=== PATIENT | female | born 1980 | race Two or more races ===

== ENCOUNTER → 2024-02-12 | Outpatient (CLI) | payer MEDICAID, SELFPAY ==
--- NOTE | 2024-02-12 14:45 | XR_ITS ---
Examination: Pelvic ultrasound, transabdominal, complete Technique: Transabdominal ultrasound of the pelvis performed using grayscale imaging Date and time of exam: February 12, 2024 1516 hours INDICATIONS: Pelvic pain beginning 4 months ago FINDINGS: Uterus 9.2 x 6.4 x 6.8 cm Uterine fundal mass 5.8 x 3.8 x 4.5 cm Ovaries obscured by bowel gas IMPRESSION: Uterine fundal mass 5.8 x 3.8 x 4.5 cm, most consistent with fibroid degeneration, recommend 3-6 month follow-up transvaginal pelvic sonography
--- NOTE | 2024-02-12 14:45 | XR_ITS ---
Examination: Transvaginal ultrasound of the pelvis, complete Technique: Transvaginal sonographic images pelvis performed using royal scale imaging Exam date and time: February 12, 2024 1522 hours INDICATIONS: Pelvic pain beginning 4 months ago FINDINGS: Uterus 8.8 x 5.6 x 6.8 cm Uterine fundal mass 5.1 x 4.5 x 5.4 cm Right ovary 3.4 x 2.1 x 2.5 cm arterial flow 18 mm 11 mm cysts Left ovary 2.4 x 1.3 x 1.5 cm arterial flow No fluid in the cul-de-sac IMPRESSION: Uterine fundal mass 5.1 x 4.5 x 5.4 cm, recommend 3 month follow-up transvaginal pelvic sonography.
== END | disposition home or self-care (01) ==
PROVIDERS: PCP Nurse Practitioner Family; Referring Provider Nurse Practitioner Family; Visit Provider Nurse Practitioner Family
DX: N85.8 Other specified noninflammatory disorders of uterus (principal)
CPT/HCPCS: 76830; 76856

== ENCOUNTER → 2024-02-20 | Outpatient (BNVA) | payer MEDICAID, SELFPAY | END | disposition home or self-care (01) | PROVIDERS: PCP Nurse Practitioner Family; Referring Provider Nurse Practitioner Family; Visit Provider Nurse Practitioner Family | DX: D25.9 Leiomyoma of uterus, unspecified (principal); F32.1 Major depressive disorder, single episode, moderate; Z71.2 Person consulting for explanation of examination or test findings; F41.9 Anxiety disorder, unspecified; N92.0 Excessive and frequent menstruation with regular cycle; N85.8 Other specified noninflammatory disorders of uterus | CPT/HCPCS: 99212; G0463 ==

== ENCOUNTER → 2024-05-04 | Outpatient (BNVA) | payer MEDICAID, SELFPAY | END | disposition home or self-care (01) | PROVIDERS: PCP Nurse Practitioner Family; Referring Provider Nurse Practitioner Family; Visit Provider Nurse Practitioner Family | DX: G43.009 Migraine without aura, not intractable, without status migrainosus (principal); J30.2 Other seasonal allergic rhinitis; F32.1 Major depressive disorder, single episode, moderate; F41.9 Anxiety disorder, unspecified | CPT/HCPCS: 96372; 99213; J3301 ==

== ENCOUNTER 2024-06-01 09:26 | Outpatient (AMB) | payer MEDICAID, SELFPAY ==
--- NOTE | 2024-06-01 09:57 | GYNCLNT_ITS ---
Vital Signs 06/01/24 09:58 Height 1.61 m Height Method Stated Weight 95.368 kg Weight Measurement Method Standing Scale BMI 36.8 BP 140/84 H Blood Pressure Source Automatic Cuff Blood Pressure Location Left Upper Arm Position Sitting Respiration 16 Pulse 76 Pulse Source Monitor Temp 96.3 F L Temp Source Oral Pulse Oximetry (%) 98 Oxygen Delivery Method Room Air Allergies/Home Meds Allergies & Medications Allergies No Known Allergies Allergy (Verified 06/01/24 09:59) Medication Reconciliation ibuprofen 800 mg tablet (IBU) 800 mg PO Q8H #90 tabs 04/16/24 [Rx Confirmed 06/01/24] fexofenadine 180 mg tablet (Basia Allergy) 180 mg PO QDAY 90 days #90 tabs 05/04/24 [Rx Confirmed 06/01/24] fluoxetine 40 mg capsule 40 mg PO QAM #90 caps 05/04/24 [Rx Confirmed 06/01/24] fluticasone propionate 50 mcg/actuation nasal spray,suspension (Flonase Allergy Relief) 2 spray intranasal QDAY PRN allergy symptoms 30 days #16 grams 05/04/24 [Rx Confirmed 06/01/24] rimegepant 75 mg disintegrating tablet (Nurtec ODT) 75 mg PO Q OTHER DAY PRN migraine headache 90 days #60 tabs 05/04/24 [Rx Confirmed 06/01/24] hydroxyzine HCl 25 mg tablet 25 mg PO QHS 90 days #90 tabs 05/11/24 [Rx Confirmed 06/01/24] Intake Visit Data Collection New Patient or Established: Established Patient (seen at [facility] within 3 years) Reason for Visit:: Fibroids Seen by Clinical Staff ONLY (RN/MA): No Disintegrator Operator Required: Yes Disintegrator Operator's name/title: ALINA JENKINS / OPERATIONS PROGRAM MANAGER S Do You Feel Safe at Home: Yes Authorities Contacted: N/A PCP or OBGYN visit in last 3 months: Yes Hx Now: No Pain Scale Used: Patton-Sanches/Numerical Pain scale:: 0 Smoking Status Smoking Status: Never smoker Correctional Guard history Correctional Guard History Menstrual regularity: regular Flow: normal Monthly: Yes Currently sexually active: Yes Questionnaires PHQ-9 PHQ-2 Over the last 2 weeks, how often have you been bothered by any of the following problems? 1. Little interest or pleasure in doing things: several days 2. Feeling down, depressed, or hopeless: not at all Total score: 1 PHQ-9 3. Trouble falling or staying asleep, or sleeping too much: Not at all 4. Feeling tired or having little energy: Not at all 5. Poor appetite or overeating: Not at all 6. Feeling bad about yourself - or that you are a failure or have let yourself or your family down: Not at all 7. Trouble concentrating on things, such as reading the newspaper or watching television: Not at all 8. Moving or speaking so slowly that other people could have noticed? - Or the opposite - being so fidgety or restless that you have been moving around a lot more than usual: more than half the days 9. Thoughts that you would be better off or of hurting yourself in some way: Not at all Total score: 3 If you checked off any problems, how difficult have these problems made it for you to do your work, take care of things at home, or get along with other people?: not difficult at all Source: Developed by Drs. Sean Oswald, Lin Farrar, Bruno Bragg and colleagues, with an educational lou from [employer]. Depression screen completed yes Social History Living Situation History Lives With: Family Housing: House Tobacco History Smoking Status: Never smoker Second Hand Smoke Exposure: No Alcohol History Alcohol Intake: Current Alcohol Intake Frequency: holidays/special occasions only Substance Use History Substance Use: NONE Domestic Abuse History Do You Feel Safe at Home: Yes Past Medical History Past Medical History Have you ever been diagnosed with any of the following: History of Present Illness HPI Narrative Patient reports mid-abdominal pain radiating to the left side and upper left back for approximately 3 months. She experiences heavy menstrual periods with pain and large clots, sometimes accompanied by hot flushes. She noted her last period was 10 days late. Patient expresses concern due to her father's from non-Hodgkin's lymphoma, which initially presented with generalized nonspecific abdominal pain. Her maternal aunt was recently diagnosed with breast cancer, and the patient expressed interest in genetic testing due to this family history. She is a 43-year-old female referred by primary care provider for review of fibroids seen on pelvic ultrasound. She has a history of cholelithiasis, migraines, and is currently taking medication for depression. A pap smear performed on 10-29-23 was negative for intraepithelial lesions or malignancy. Ultrasound on 02-12-24 revealed a uterus measuring 8.8 x 5.6 x 6.8 cm with a uterine frontal mass measuring 5.1 x 4.5 x 5.4 cm. Right ovary measured 3.4 cm and left ovary 2.4 cm, both with arterial flow. No fluid was observed in the cul-de-sac. CT scan on the same day corroborated these findings. A previous outpatient ultrasound on 12-24-23 noted an enhancing 4 cm fundal mass and a 14 mm adnexal cyst. The patient was informed about a medication plan, timed progesterone for 21 dayst with her period. Diagnostic Test Results and Labs: - Pap smear (10-29-23): Negative for intraepithelial lesions or malignancy - Ultrasound (02-12-24): Uterus measuring 8.8 x 5.6 x 6.8 cm Uterine frontal mass measuring 5.1 x 4.5 x 5.4 cm Right ovary 3.4 cm with arterial flow Left ovary 2.4 cm with arterial flow No fluid in the cul-de-sac - CT scan (02-12-24): Consistent with ultrasound findings - Outpatient ultrasound (12-24-23): Enhancing 4 cm fundal mass 14 mm adnexal cyst Review of Systems Review of Systems Systems Reviewed: All systems reviewed, normal except as documented Exam General Limitations: no limitations General Appearance: alert, in no apparent distress, comfortable, cooperative, healthy appearing, well developed and well groomed Head Head exam: atraumatic, normocephalic and normal inspection Neck Neck exam: Present normal inspection, full ROM and trachea midline Chest Chest inspection: Present normal inspection and symmetric chest wall rise Abdominal Abdominal exam: Present soft and normal bowel sounds Extremities Extremities exam: Present normal inspection and full ROM Back Back exam: Present normal inspection and full ROM Psych Psychiatric exam: Present normal affect and normal mood Skin Skin exam: Present warm, dry, intact and normal color Assessment & Plan Diagnosis / Problem List (1) Cholelithiasis: Status: Chronic Qualifiers: Cholelithiasis location: gallbladder Cholecystitis presence: without cholecystitis Biliary obstruction: without biliary obstruction Qualified Code(s): K80.20 - Calculus of gallbladder without cholecystitis without obstruction (2) Ovarian cyst: Status: Acute Qualifiers: Laterality: right Qualified Code(s): N83.201 - Unspecified ovarian cyst, right side (3) Uterine mass: Status: Chronic Plan: Uterine Fibroids: - Administer Lupron (leuprolide depot) monthly for up to a year. - Repeat ultrasound in 3 months to monitor fibroid growth. - Prescribe medication to be taken 3 times a day for 5 days starting after the first three days of next menstrual period. - Schedule follow-up appointment in June after next menstrual period for Lupron injection. Family History of Cancer: - Order genetic testing for breast cancer gene at next visit. (4) Family history of malignant neoplasm in father: Status: Acute Additional Plan Follow Up: 3 Weeks Office Procedures OB Clinic LOC & Office Proc's Nursing/Assessment Patient Status: Established Patient OB Clinic Nursing Assessment: BP Monitoring, Medication Reconciliation, Update PMH in EMR and Vital Signs OB Clinic Coordination of Care: Complex Care and Chronic Disease 1-5, Consent,records obtained, informed consent, Education Simp Pt/Fam and Staff clarify orders Established Patient Charge Established Patient Point Assignment: 100 Established Patient Point Charge: EP Level 3 (80-115)
[2024-06-01 09:58] VITALS: BP 140/84; PULSE 76; RESP 16; TEMP 35.7; O2SAT 98; BMI 36.8
== END 2024-06-01 10:31 | disposition home or self-care (01) ==
LOC: HODSOBC 09:26
PROVIDERS: PCP Nurse Practitioner Family; Referring Provider Nurse Practitioner Family; Supervising Provider Obstetrics & Gynecology; Visit Provider Obstetrics & Gynecology
DX: R10.9 Unspecified abdominal pain (principal); N92.0 Excessive and frequent menstruation with regular cycle; N83.201 Unspecified ovarian cyst, right side; N85.8 Other specified noninflammatory disorders of uterus; Z80.9 Family history of malignant neoplasm, unspecified
CPT/HCPCS: 99213; G0463

== ENCOUNTER → 2024-06-22 | Outpatient (BNVA) | payer MEDICAID, SELFPAY | END | disposition home or self-care (01) | PROVIDERS: PCP Nurse Practitioner Family; Referring Provider Nurse Practitioner Family; Visit Provider Nurse Practitioner Family | DX: Z12.39 Encounter for other screening for malignant neoplasm of breast (principal); G43.909 Migraine, unspecified, not intractable, without status migrainosus | CPT/HCPCS: 81025; 96372; 99215; J1200; J1885; Q0162 ==

== ENCOUNTER → 2024-07-15 | Outpatient (CLI) | payer MEDICAID, SELFPAY ==
--- NOTE | 2024-07-15 14:30 | XR_ITS ---
Examination: Screening digital mammography, bilateral Computer aided detection 3-D breast Tomosynthesis, bilateral Date and time of exam: July 15, 2024 1439 hours Comparison December 10, 2022 Indication: Screening Technique: Nonmagnified MLO, CC views of the breasts to been obtained, reconstructed from 3-D Tomosynthesis images. R2 computer aided detection program utilized for evaluation of suspicious masses and/or abnormal calcifications. 3-D Tomosynthesis images obtained. Findings: The breasts are heterogeneously dense, which may obscure small masses Retroareolar circumscribed nodules right breast likely benign cysts described on the breast sonography October 03, 2017 Also 7 mm circumscribed nodule 12:00 position left breast, likely cyst described on left breast sonogram October 03, 2017 Impression: BI-RADS Category 0: Incomplete: Need additional imaging evaluation Recommend follow-up bilateral renal sonography to confirm bilateral benign breast cysts
== END | disposition home or self-care (01) ==
PROVIDERS: PCP Nurse Practitioner Family; Referring Provider Nurse Practitioner Family; Visit Provider Nurse Practitioner Family
DX: Z12.31 Encounter for screening mammogram for malignant neoplasm of breast (principal); R92.8 Other abnormal and inconclusive findings on diagnostic imaging of breast
CPT/HCPCS: 77063; 77067

== ENCOUNTER 2024-07-28 14:00 | Outpatient (AMB) | payer MEDICAID, SELFPAY ==
[2024-07-28 14:29] VITALS: BP 121/82; PULSE 87; RESP 18; TEMP 36.2; O2SAT 98; BMI 36.8
--- NOTE | 2024-07-28 14:29 | OBCLNT_ITS ---
Vital Signs 07/28/24 14:29 Height 1.61 m Height Method Stated Weight 95.424 kg Weight Measurement Method Standing Scale BMI 36.8 BP 121/82 Blood Pressure Source Automatic Cuff Blood Pressure Location Left Upper Arm Position Sitting Respiration 18 Pulse 87 Pulse Source Monitor Temp 97.2 F Temp Source Oral Pulse Oximetry (%) 98 Oxygen Delivery Method Room Air Allergies/Home Meds Allergies & Medications Allergies No Known Allergies Allergy (Verified 08/06/24 11:32) Medication Reconciliation galcanezumab-gnlm 120 mg/mL subcutaneous pen injector (Emgality Pen) 120 mg subcut QMONTH #1 mL 06/22/24 [Rx Confirmed 08/06/24] ibuprofen 800 mg tablet (IBU) 800 mg PO Q8H #90 tabs 08/04/24 [Rx Confirmed 08/06/24] gabapentin 100 mg capsule 100 mg PO QHS 30 days #30 caps 08/06/24 [Rx] Intake Visit Data Collection New Patient or Established: Established Patient (seen at [facility] within 3 years) Reason for Visit:: LUPRON INJECTION AUTHORIZATION APPROVED FOR 6 INJECTIONS ONLY Seen by Clinical Staff ONLY (RN/MA): No Laborer Cutting Tool Required: Yes Laborer Cutting Tool's name/title: ALINA JENKINS MA Do You Feel Safe at Home: Yes Authorities Contacted: N/A PCP or OBGYN visit in last 3 months: Yes Date of Last PCP or OBGYN visit: 06/22/24 Hx Now: No Are you currently on any form of Control: No Pain Present Currently: No Pain Scale Used: Patton-Sanches/Numerical Pain scale:: 0 Smoking Status Smoking Status: Never smoker Questionnaires Covid-19 Vaccine Questionnaire Has patient been vacinated for Covid-19 Have you been vacinated for Covid-19: Yes PHQ-9 PHQ-2 Over the last 2 weeks, how often have you been bothered by any of the following problems? 1. Little interest or pleasure in doing things: not at all 2. Feeling down, depressed, or hopeless: not at all Total score: 0 PHQ-9 3. Trouble falling or staying asleep, or sleeping too much: Not at all 4. Feeling tired or having little energy: Not at all 5. Poor appetite or overeating: Not at all 6. Feeling bad about yourself - or that you are a failure or have let yourself or your family down: Not at all 7. Trouble concentrating on things, such as reading the newspaper or watching television: Not at all 8. Moving or speaking so slowly that other people could have noticed? - Or the opposite - being so fidgety or restless that you have been moving around a lot more than usual: not at all 9. Thoughts that you would be better off or of hurting yourself in some way: Not at all Total score: 0 Source: Developed by Drs. Sean Oswald, Lin Farrar, Bruno Bragg and colleagues, with an educational lou from [employer]. Depression screen completed yes Social History Living Situation History Lives With: Family Housing: House Tobacco History Smoking Status: Never smoker Second Hand Smoke Exposure: No Alcohol History Alcohol Intake: Current Alcohol Intake Frequency: holidays/special occasions only Substance Use History Substance Use: NONE Domestic Abuse History Do You Feel Safe at Home: Yes History of Present Illness HPI Narrative Patient presents for follow-up of uterine fibroids and to receive her scheduled Lupron injection. She had previously discussed treatment options and elected to receive dapolipran (Lupron) injections once a month, with a plan to repeat an ultrasound in 3 months. She is currently starting a 6-month course of Lupron injections for the management of her uterine fibroids. This treatment aims to temporarily pause her hormonal cycle, which is expected to cause the fibroids to shrink due to the reduction in hormonal stimulation. The patient is attending today for her mala eduled injection, which is part of the ongoing treatment plan. She has been approved for 6 months of treatment, typically administered in blocks of 6 injections with a 2-month break in between. The patient's understanding of the treatment and its effects was reinforced during this visit. It was explained that the Lupron injections would temporarily stop her body's production of hormones related to her menstrual cycle, leading to a reduction in fibroid size. The reversible nature of the treatment was also discussed, noting that the effects would subside once the injections are discontinued, with hormones returning to normal levels but the fibroids remaining smaller in size. She is a 43-year-old female with a history of uterine fibroids. Exam General General Appearance: alert, in no apparent distress and healthy appearing Head Head exam: atraumatic Neck Neck exam: Present normal inspection and trachea midline Chest Chest inspection: Present normal inspection and symmetric chest wall rise External exam: Present normal external exam; Absent tenderness Neuro Neurological exam: Present oriented X3 Psych Psychiatric exam: Present normal affect and normal mood Office Procedures OB Clinic LOC & Office Proc's Nursing/Assessment Patient Status: Established Patient OB Clinic Nursing Assessment: Medication Reconciliation, Update PMH in EMR and Vital Signs OB Clinic Coordination of Care: Education Complex Pt/Fam, Consent,records obtained, informed consent, Lab and Imaging orders and Staff clarify orders Established Patient Charge Established Patient Point Assignment: 80 Injection/Vaccine Admin Admin 1st Vaccine: Yes Office Meds Lupron Depot 3.75 mg intramuscular syringe kit Performing Provider: Doyle Thrasher MD Performing Location: [facility]IG[facility] ACCOUNT DIRECT[facility] Clinic Administered by: Alina Jenkins MA on 08/06/24 16:27 Dose Route Admin Location Dispensed Lot Number Expiration Date [facility][NOTE 3] Life Insurance Underwriter 3.375 mg IM L 3.75 mg [id number] 04/30/26 3856-7343-28 [employer] Assessment & Plan Diagnosis / Problem List (1) Fibroid, uterine: Status: Acute Qualifiers: Uterine leiomyoma location: unspecified location Qualified Code(s): D25.9 - Leiomyoma of uterus, unspecified (2) Pelvic pain: Status: Acute (3) Menorrhagia: Status: Acute Plan Uterine Fibroids Plan: - Administer Lupron injection today. - Continue monthly Lupron injections for a total of 6 months. - Schedule monthly follow-up appointments for Lupron administration. - Repeat ultrasound in 3 months to assess fibroid response. - After 5th injection, plan for a 2-month break before considering further treatment. - Educated patient on the temporary nature of the treatment and expected effects.
== END 2024-07-28 14:50 | disposition home or self-care (01) ==
LOC: HODSOBC 14:00
PROVIDERS: PCP Obstetrics & Gynecology; Referring Provider Obstetrics & Gynecology; Supervising Provider Obstetrics & Gynecology; Visit Provider Obstetrics & Gynecology
DX: D25.9 Leiomyoma of uterus, unspecified (principal); N92.0 Excessive and frequent menstruation with regular cycle
CPT/HCPCS: 90471; 96372; 99213; J1950; G0463

== ENCOUNTER → 2024-08-06 | Outpatient (BNVA) | payer MEDICAID, SELFPAY | END | disposition home or self-care (01) | PROVIDERS: PCP Nurse Practitioner Family; Referring Provider Nurse Practitioner Family; Visit Provider Nurse Practitioner Family | DX: J30.2 Other seasonal allergic rhinitis (principal); J32.9 Chronic sinusitis, unspecified; R53.83 Other fatigue; I83.813 Varicose veins of bilateral lower extremities with pain; G25.81 Restless legs syndrome; R92.8 Other abnormal and inconclusive findings on diagnostic imaging of breast; G47.33 Obstructive sleep apnea (adult) (pediatric); Z80.3 Family history of malignant neoplasm of breast; Z12.31 Encounter for screening mammogram for malignant neoplasm of breast | CPT/HCPCS: 99215 ==

== ENCOUNTER → 2024-08-24 | Outpatient (BNVA) | payer MEDICAID, SELFPAY | END | disposition home or self-care (01) | PROVIDERS: PCP Nurse Practitioner Family; Referring Provider Nurse Practitioner Family; Visit Provider Nurse Practitioner Family | DX: Z00.01 Encounter for general adult medical examination with abnormal findings (principal); Z11.3 Encounter for screening for infections with a predominantly sexual mode of transmission; F41.9 Anxiety disorder, unspecified; G43.909 Migraine, unspecified, not intractable, without status migrainosus; F32.1 Major depressive disorder, single episode, moderate; Z13.1 Encounter for screening for diabetes mellitus; Z13.220 Encounter for screening for lipoid disorders; E66.9 Obesity, unspecified; Z68.30 Body mass index [BMI] 30.0-30.9, adult; D50.0 Iron deficiency anemia secondary to blood loss (chronic); G25.81 Restless legs syndrome; I83.813 Varicose veins of bilateral lower extremities with pain; Z71.85 Encounter for immunization safety counseling | CPT/HCPCS: 85018; 96372; 99173; 99215; 99396; J1885; G0439 ==

== ENCOUNTER 2024-08-25 15:25 | Outpatient (AMB) | payer MEDICAID, SELFPAY ==
[2024-08-25 15:39] VITALS: BP 108/67; PULSE 73; RESP 16; TEMP 36.7; O2SAT 98; BMI 36.1
--- NOTE | 2024-08-25 15:39 | GYNCLNT_ITS ---
Vital Signs 08/25/24 15:39 Height 1.61 m Height Method Stated Weight 93.667 kg Weight Measurement Method Standing Scale BMI 36.1 BP 108/67 Blood Pressure Source Automatic Cuff Blood Pressure Location Right Upper Arm Position Sitting Respiration 16 Pulse 73 Pulse Source Monitor Temp 98.1 F Temp Source Oral Pulse Oximetry (%) 98 Oxygen Delivery Method Room Air Allergies/Home Meds Allergies & Medications Allergies No Known Allergies Allergy (Verified 08/25/24 15:41) Medication Reconciliation ibuprofen 800 mg tablet (IBU) 800 mg PO Q8H #90 tabs 08/04/24 [Rx Confirmed 08/25/24] ferrous fumarate 325 mg (106 mg iron) tablet 325 mg PO QDAY 30 days #30 tabs 08/24/24 [Rx Confirmed 08/25/24] fluoxetine 40 mg capsule 40 mg PO QDAY 08/24/24 [History Confirmed 08/25/24] folic acid 400 mcg tablet 0.4 mg PO QDAY #90 tabs 08/24/24 [Rx Confirmed 08/25/24] estradiol 1 mg tablet 1 mg PO QDAY 30 days #30 tabs 08/25/24 [Rx] fremanezumab-vfrm 225 mg/1.5 mL subcutaneous auto-injector (Ajovy) 675 mg (4.5 mL) subcut QMONTH #4.5 mL 08/25/24 [Rx Confirmed 08/25/24] gabapentin 300 mg capsule 300 mg PO QHS 30 days #30 caps 08/25/24 [Rx Confirmed 08/25/24] rimegepant 75 mg disintegrating tablet (Nurtec ODT) 75 mg PO Q OTHER DAY PRN migraine headache 90 days #60 tabs 08/25/24 [Rx Confirmed 08/25/24] Intake Visit Data Collection New Patient or Established: Established Patient (seen at [facility] within 3 years) Reason for Visit:: LUPERON INJECTION Seen by Clinical Staff ONLY (RN/MA): No Piercing Specialist Required: Yes Piercing Specialist's name/title: ALINA JENKINS Do You Feel Safe at Home: Yes Authorities Contacted: N/A PCP or OBGYN visit in last 3 months: Yes Hx Now: No Are you currently on any form of Control: No Last menstrual period: 08/13/24 Pain Present Currently: No Pain Scale Used: Patton-Sanches/Numerical Pain scale:: 0 Smoking Status Smoking Status: Never smoker Questionnaires Covid-19 Vaccine Questionnaire Has patient been vacinated for Covid-19 Have you been vacinated for Covid-19: Yes PHQ-9 PHQ-2 Over the last 2 weeks, how often have you been bothered by any of the following problems? 1. Little interest or pleasure in doing things: several days PHQ-9 8. Moving or speaking so slowly that other people could have noticed? - Or the opposite - being so fidgety or restless that you have been moving around a lot more than usual: not at all Source: Developed by Drs. Sean Oswald, Lin Farrar, Bruno Bragg and colleagues, with an educational lou from [employer]. Social History Living Situation History Lives With: Family Housing: House Tobacco History Smoking Status: Never smoker Second Hand Smoke Exposure: No Alcohol History Alcohol Intake: Current Alcohol Intake Frequency: holidays/special occasions only Substance Use History Substance Use: NONE Domestic Abuse History Do You Feel Safe at Home: Yes History of Present Illness HPI Narrative Patient reports that her menstrual bleeding has become even heavier following the first injection of her treatment regimen. She denies experiencing hot flushes or anxiety related to the treatment. Patient's condition originated with multiple leiomyomas of the uterus, confirmed by an ultrasound in February. The imaging revealed a fundal leiomyoma measuring 5.1 by 4.5 by 5.4 centimeters, along with multiple smaller fibroids. Her primary concerns have been pelvic pain and bleeding. Patient reports some intermediate symptoms, though these are not specified in detail. She appears to be considering her treatment options, as there is a discussion about potentially continuing with injections or considering surgery if the current treatment plan is not effective. She has agreed to receive another injection along with the addition of a low-dose hormone pill to address the side effects, including the increased bleeding. Patient has a history of multiple uterine leiomyomas (fibroids). She has received at least one injection for leiomyomas, with side effects including heavy bleeding, possible hot flushes and anxiety. Patient reports positive for hot flushes, heavy bleeding, and anxiety. Exam General General Appearance: alert, in no apparent distress and healthy appearing Head Head exam: atraumatic Neck Neck exam: Present normal inspection and trachea midline Chest Chest inspection: Present normal inspection and symmetric chest wall rise External exam: Present normal external exam; Absent tenderness Neuro Neurological exam: Present oriented X3 Psych Psychiatric exam: Present normal affect and normal mood Office Procedures OB Clinic LOC & Office Proc's Nursing/Assessment Patient Status: Established Patient OB Clinic Nursing Assessment: Medication Reconciliation, Update PMH in EMR and Vital Signs OB Clinic Coordination of Care: Complex Care and Chronic Disease 1-5, Consent,records obtained, informed consent, Education Simp Pt/Fam and Staff clarify orders Established Patient Charge Established Patient Point Assignment: 85 Established Patient Point Charge: EP Level 3 (80-115) Injection/Vaccine Admin Admin 1st Vaccine: Yes Office Meds Lupron Depot 3.75 mg intramuscular syringe kit Performing Provider: Doyle Thrasher MD Performing Location: [facility] Clinic Administered by: Alina Jenkins MA on 08/25/24 16:08 Dose Route Admin Location Dispensed Lot Number Expiration Date [facility] Executive Marketing Assistant 3.375 mg IM LEFT GLUTE 3.75 mg [id number] 10/09/26 1136-9745-82 [email or web address] Assessment & Plan Diagnosis / Problem List (1) Vasomotor symptoms due to menopause: Status: Acute (2) Pelvic pain: Status: Acute (3) Menorrhagia: Status: Acute (4) Fibroid, uterine: Status: Acute Qualifiers: Uterine leiomyoma location: unspecified location Qualified Code(s): D25.9 - Leiomyoma of uterus, unspecified Plan Multiple Uterine Leiomyomas: - Confirmed by ultrasound in February. - Fundal leiomyoma measuring 5.1 x 4.5 x 5.4 cm. - Multiple smaller fibroids present. - Primary symptoms: pelvic pain and heavy bleeding. - Initial injection (likely GnRH agonist) resulted in heavier bleeding. - Possible intermediate symptoms: hot flushes and anxiety (not explicitly confirmed). Plan: - Administer second injection (likely GnRH agonist) - Initiate add-back therapy with low-dose hormone pill for side effects * Patient to fish bait picker prescription from [facility] today - Follow-up appointment in one month - Patient instructed to return sooner if problems persist or worsen - Consider surgical intervention if treatment is not tolerated
== END 2024-08-25 15:52 | disposition home or self-care (01) ==
LOC: HODSOBC 15:25
PROVIDERS: PCP Obstetrics & Gynecology; Referring Provider Obstetrics & Gynecology; Supervising Provider Obstetrics & Gynecology; Visit Provider Obstetrics & Gynecology
DX: D25.9 Leiomyoma of uterus, unspecified (principal); N92.0 Excessive and frequent menstruation with regular cycle; N95.1 Menopausal and female climacteric states; R23.2 Flushing
CPT/HCPCS: 90471; 96372; 99213; J1950; G0463

== ENCOUNTER → 2024-08-25 | Outpatient (BNVA) | payer MEDICAID, SELFPAY | END | disposition home or self-care (01) | PROVIDERS: PCP Nurse Practitioner Family; Referring Provider Nurse Practitioner Family; Visit Provider Nurse Practitioner Family | DX: N39.0 Urinary tract infection, site not specified (principal) | CPT/HCPCS: 96372; 99214; J1200; J1885 ==

== ENCOUNTER → 2024-08-31 | Outpatient (BNVA) | payer MEDICAID, SELFPAY | END | disposition home or self-care (01) | PROVIDERS: PCP Nurse Practitioner Family; Referring Provider Nurse Practitioner Family; Visit Provider Nurse Practitioner Family | DX: N39.0 Urinary tract infection, site not specified (principal); G43.909 Migraine, unspecified, not intractable, without status migrainosus | CPT/HCPCS: 81001; 81025; 96372; 99215; A4216; J0696 ==

== ENCOUNTER → 2024-09-04 | Outpatient (BNVA) | payer MEDICAID, SELFPAY | END | disposition home or self-care (01) | PROVIDERS: PCP Nurse Practitioner Family; Referring Provider Nurse Practitioner Family; Visit Provider Nurse Practitioner Family | DX: Z71.2 Person consulting for explanation of examination or test findings (principal); D50.0 Iron deficiency anemia secondary to blood loss (chronic); R19.00 Intra-abdominal and pelvic swelling, mass and lump, unspecified site; N92.0 Excessive and frequent menstruation with regular cycle; E78.5 Hyperlipidemia, unspecified; R73.03 Prediabetes; E55.9 Vitamin D deficiency, unspecified; R10.2 Pelvic and perineal pain | CPT/HCPCS: 99212; G0463 ==

== ENCOUNTER → 2024-09-14 | Outpatient (BNVA) | payer MEDICAID, SELFPAY | END | disposition home or self-care (01) | PROVIDERS: PCP Nurse Practitioner Family; Referring Provider Nurse Practitioner Family; Visit Provider Nurse Practitioner Primary Care | DX: U07.1 COVID-19 (principal) | CPT/HCPCS: 87804; 87811; 99214 ==

== ENCOUNTER 2024-09-15 13:43 | Emergency (ER) | payer MEDICAID, SELFPAY ==
[2024-09-15 13:46] VITALS: BMI 34.1
[2024-09-15 13:53] VITALS: BP 136/92; PULSE 83; RESP 18; TEMP 36.8; O2SAT 98
--- NOTE | 2024-09-15 14:00 | XR_ITS ---
Examination: CT brain head without contrast. 2-D sagittal coronal reconstructions Date and time of exam:September 15, 2024 1427 hours INDICATIONS: Generalized head pain paresthesias and numbness in Disease today CTDI: vol (mGy):44.9 DLP: (mGycm):863 Technique: Multiple CT axial sections of the brain have been obtained, 5 mm slice thickness. Contrast has not been administered. 2-D sagittal, coronal reconstructions have been obtained Low dose protocols were performed. One or more of the following dose reduction techniques were used; automated exposure control, adjustment of the mA and/or KV according to patient size, use of iterative reconstruction technique. Findings: No significant ventricular enlargement. Intra-axial or extra-axial hemorrhage density is not seen. No mass effect or midline shift Basal cisterns are not remarkable. Fourth ventricle is midline. Cranial vault intact. Impression: Negative for acute hemorrhage, mass effect or midline shift As clinically warranted, brain MRI follow-up would best assess for demyelinating disease
--- NOTE | 2024-09-15 14:01 | EKG_ITS ---
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
--- NOTE | 2024-09-15 14:01 | XR_ITS ---
Examination: PA lateral chest 2 views TECHNIQUE: Upright PA lateral chest 2 views Date and time: September 15, 2024 1439 hours Comparison November 06, 2022 INDICATIONS: Chest pain beginning 4 days ago. FINDINGS: Normal heart size. Lungs are clear. The osseous structures are intact. IMPRESSION: No active disease.
--- NOTE | 2024-09-15 14:01 | PD.EDRME ---
Rapid Medical Screening Exam RME Arrival date/time: 09/15/24 13:43 43-year-old female presents the emergency department today for complaints of numbness and tingling to her extremities patient reports she started taking medication for COVID yesterday and reports symptom started after that Chief Complaint: General Adult/Misc Complain Vital signs: Vital Signs Temperature 98.3 F 09/15/24 13:53 Pulse Rate 83 09/15/24 13:53 Respiratory Rate 18 09/15/24 13:53 Blood Pressure 136/92 H 09/15/24 13:53 Pulse Oximetry (%) 98 09/15/24 13:53 Oxygen Delivery Method Room Air 09/15/24 13:53
[2024-09-15 15:00] LABS: Basophils # (Auto) 0.0 Thou/mm3 (0.0-0.2); Basophils % (Auto) 0 % (0-2.5); Eosinophils # (Auto) 0.0 Thou/mm3 (0.0-0.5); Eosinophils % (Auto) 0 % (0-10); Hematocrit 32.2 % (36.0-46.0); Hemoglobin 10.0 g/dL (12.0-16.0); Immature Granulocytes Auto 0.02 Thou/mm3 (0.00-0.00); Lymphocytes # (Auto) 1.1 Thou/mm3 (1.0-4.8); Lymphocytes % (Auto) 20 % (10-50); Mean Corpuscular HGB Conc 31.1 g/dl (31.0-37.0); Mean Corpuscular Hemoglobin 19.5 pg (25.0-35.0); Mean Corpuscular Volume 63 fL (80-100); Monocytes # (Auto) 0.2 Thou/mm3 (0.0-0.8); Monocytes % (Auto) 4 % (0-12); Neutrophils # (Auto) 3.9 Thou/mm3 (1.8-7.7); Neutrophils % (Auto) 75 % (37-80); Nucleated Red Blood Cell # 0.00 Thou/mm3 (0.00-0.00); Nucleated Red Blood Cell % 0 /100 WBC (0); Platelet Count 329 Thou/mm3 (140-440); RDW Standard Deviation 40.6 fL (36.4-46.3); Red Blood Count 5.14 Miln/mm3 (4.00-5.20); White Blood Count 5.2 Thou/mm3 (3.6-11.0)
[2024-09-15 15:15] LABS: Alanine Aminotransferase 64 U/L (10-49); Albumin, Serum 5.0 gm/dL (3.5-5.0); Albumin/Globulin Ratio 1.6 (1.2-2.2); Alkaline Phosphatase 147 U/L (46-116); Anion Gap 11 (7-16); Aspartate Amino Transferase 29 U/L (0-34); BUN/Creatinine Ratio 10 Ratio (12-20); Bilirubin,Total 0.3 mg/dL (0.3-1.2); Blood Urea Nitrogen 9 mg/dL (9-23); Calcium 9.8 mg/dL (8.3-10.6); Calcium (Corrected) 9.8 mg/dL (8.5-10.1); Carbon Dioxide 26.3 mMol/L (20.0-31.0); Chloride 107 mMol/L (98-107); Creatinine (Component) 0.9 mg/dL (0.6-1.3); Estimated Creatinine Clearance 92.7 mL/min (>60); Globulin 3.1 gm/dL (2.3-3.5); Glucose 120 mg/dL (74-106); Osmolality,Calculated 286 (275-295); Potassium 4.4 mMol/L (3.4-5.1); Sodium 144 mMol/L (136-145); Total Protein 8.1 gm/dL (5.7-8.2); Troponin I < 0.020 ng/mL (0.0-0.045); eGFR > 60 See Note
--- NOTE | 2024-09-15 15:39 | EDNOTE_ITS ---
ED General RME/HPI General Chief complaint: General Adult/Misc Complain Stated complaint: HANDS/FEET ARE NUMB & NAUSEA X 3 HRS Time Seen by Provider: 09/15/24 15:38 Arrival date/time: 09/15/24 13:43 43-year-old female presents the emergency department today for complaints of numbness and tingling to her extremities patient reports she started taking medication for COVID yesterday and reports symptom started after that Limitations: no limitations RME / HPI RME / HPI narrative: 09/15/24 13:43 43-year-old female presents the emergency department today for complaints of numbness and tingling to her extremities patient reports she started taking medication for COVID yesterday and reports symptom started after that Related Data Home Medications ?Medication ?Instructions ?Recorded ?Confirmed fluoxetine 40 mg capsule 40 mg PO QDAY 08/24/2409/14 Previous Rx's ?Medication ?Instructions ?Recorded ibuprofen 800 mg tablet (IBU) 800 mg PO Q8H #90 tabs 0 08/04/24 folic acid 400 mcg tablet 0.4 mg PO QDAY #90 tabs 08/09 09/02 estradiol 1 mg tablet 1 mg PO QDAY 30 days #30 tab s 08/25/24 gabapentin 300 mg capsule 300 mg PO QHS 30 days #30 ca ps 08/25/24 rimegepant 75 mg disintegrating 75 mg PO Q OTHER DAY P RN migraine 08/25/24 tablet (Nurtec ODT) headache 90 days #60 tabs fremanezumab-vfrm 225 mg/1.5 mL 225 mg (1.5 mL) subcut QMONTH #4.5 08/31/24 subcutaneous auto-injector (Ajovy) mL ergocalciferol (vitamin D2) 1,250 50,000 unit PO QWEEK 12 weeks #12 09/04/24 mcg (50,000 unit) capsule caps ferrous sulfate 325 mg (65 mg 325 mg PO BID 30 days #6 0 tabs 09/04/24 iron) tablet nirmatrelvir 300 mg (150 mg See Rx Instructions PO .CO MPLEX 09/14/24 x2)-ritonavir 100 mg tablet,dose #30 tabs pack (Paxlovid) ondansetron HCl 4 mg tablet 4 mg PO Q8H 5 days #15 tab s 09/15/24 Allergies Allergy/AdvReac Type Severity Reaction Status Date / Time No Known Allergies Allergy Verified 09/15/24 13:49 Review of Systems Review of Systems Systems Reviewed: All systems reviewed, normal except as documented Constitutional Constitutional: Reports system reviewed and no additional complaints, except as documented, Denies fever(s) and Denies headache(s) Eyes Eyes: Reports system reviewed and no additional complaints, except as documented and Denies blurry vision ENT Ears, Nose, Mouth, and Throat: Reports system reviewed and no additional complaints, except as documented, Denies headache(s), Denies nasal congestion and Denies nasal discharge Cardiovascular Cardiovascular: Reports system reviewed and no additional complaints, except as documented, Denies chest pain and Denies dyspnea Respiratory Respiratory: Reports system reviewed and no additional complaints, except as documented, Denies chest congestion, Denies cough and Denies dyspnea Gastrointestinal Gastrointestinal: Reports system reviewed and no additional complaints, except as documented and Denies abdominal pain Integumentary/Breasts Skin/Breast: Reports system reviewed and no additional complaints, except as documented and Denies rash Neurologic Neurologic: Reports system reviewed and no additional complaints, except as documented, Reports as per HPI, Denies headache(s) and Reports other (Paresthesias fingertips and toes) Past Medical History Social History SMOKING STATUS: Never smoker SECOND HAND EXPOSURE: No ED Exam General Limitations: Present no limitations General appearance: Present alert and in no apparent distress Head Head exam: Present atraumatic, normocephalic and normal inspection Eye Eye exam: Present normal appearance, PERRL and EOMI; Absent conjunctival injection ENT ENT exam: Present normal exam, normal oropharynx and mucous membranes moist Neck Neck exam: Present normal inspection, full ROM and trachea midline Chest Chest inspection: Present normal inspection and symmetric chest wall rise Respiratory Respiratory exam: Present normal lung sounds bilaterally; Absent respiratory distress Cardiovascular Cardiovascular exam: Present regular rate, normal rhythm and normal heart sounds Abdominal Exam Abdominal exam: Present soft and normal bowel sounds; Absent distention, tenderness, guarding, rebound or rigidity Extremities Exam Extremities exam: Present normal inspection and full ROM Back Exam Back exam: Present normal inspection and full ROM Neurological Exam Neurological exam: Present alert, oriented X3, CN II-XII intact, normal gait and reflexes normal; Absent motor sensory deficit Psychiatric Psychiatric exam: Present normal affect and normal mood Skin Skin exam: Present warm, dry, intact and normal color; Absent rash Course Quality Measures none Orders Category Date Time Status EKG (ED ONLY) *Do not use* NOW Care 09/15/24 14:[address] head/brain wo con Stat Exams 09/15/24 14:00 Completed EKG (ED Only) Stat Exams 09/15/24 14:01 Draft XR chest 2V Stat Exams 09/15/24 14:01 Completed CBC Stat Lab 09/15/24 14:31 Completed Comprehensive Metabolic Panel Stat Lab 09/15/24 14:31 Completed Path Review Blood Smear Stat Lab 09/15/24 14:31 Completed Troponin I Stat Lab 09/15/24 14:31 Completed Vital Signs Vital signs: Vital Signs Temperature 98.3 F 09/15/24 13:53 Pulse Rate 83 09/15/24 13:53 Respiratory Rate 18 09/15/24 13:53 Blood Pressure 136/92 H 09/15/24 13:53 Pulse Oximetry (%) 98 09/15/24 13:53 Oxygen Delivery Method Room Air 09/15/24 13:53 O2 saturation 98% room air within normal limits PROCEDURES: EKG Interpretation #1: Date of EK09/15/24 Time of EK:03 Rate: 78 Interpretation: Interpreted by me EKG Impression: Normal sinus rhythm, No acute ST-T changes, No ectopy, No ischemic changes, Normal QRS, Normal intervals and Normal axis Discharge Plan Plan Patient Disposition: HOME (Self Care) Discharge Disposition comment: Stable Prescriptions/Referrals Prescriptions/Med Rec: No Action estradiol 1 mg tablet 1 mg PO QDAY 30 Days Qty: 30 2RF Ajovy Autoinjector 225 mg/1.5 mL auto-injector 225 mg subcut QMONTH Qty: 4.5 0RF fluoxetine 40 mg capsule 40 mg PO QDAY folic acid 400 mcg tablet 0.4 mg PO QDAY Qty: 90 0RF Nurtec ODT 75 mg tablet,disintegrating 75 mg PO Q OTHER DAY PRN (Reason: migraine headache) 90 Days Qty: 60 3RF gabapentin 300 mg capsule 300 mg PO QHS 30 Days Qty: 30 0RF Rx Instructions: take 2 hours before bedtime ergocalciferol (vitamin D2) 1,250 mcg (50,000 unit) capsule 50,000 unit PO QWEEK 84 Days Qty: 12 0RF ferrous sulfate 325 mg (65 mg iron) tablet 325 mg PO BID 30 Days Qty: 60 0RF Paxlovid 300 mg (150 mg x 2)-100 mg tablets,dose pack See Rx Instructions PO .COMPLEX Qty: 30 0RF Rx Instructions: take TWO 150 mg tablets of nirmatrelvir with ONE 100 mg tablet of ritonavir twice daily for 5 days PO ondansetron HCl 4 mg tablet 4 mg PO Q8H 5 Days Qty: 15 0RF ibuprofen [IBU] 800 mg tablet 800 mg PO Q8H Qty: 90 0RF Referrals: No Primary/Family,Physician [Primary Care Provider] - 09/16/24 Problem List Clinical Impression: Paresthesia, COVID-19 Patient/Caregiver Discharge Instructions Education Materials: COVID-19 Home Care Additional Instructions: Please follow up with your primary care doctor in the next 24-48hrs for any worsening symptoms return here immediately Print Language: Persian Stand Alone Forms: Aggie Award Info., Patient Portal Info Letter PA/QUYNH Supervising Physician PA/TOWER EQUIPMENT REPAIRER Supervising Physician: dr hernández [facility] Narrative [facility] hospital course: 43-year-old female presents the emergency department today for complaints of numbness and tingling to her extremities patient reports she started taking medication for COVID yesterday and reports symptom started after that On exam patient well-appearing patient does not appear ill or toxic no acute distress patient has equal strength bilaterally no abnormal neurological findings Lab work and imaging obtained no acute emergent findings noted Patient discharged home in no distress to follow-up with primary care doctor in the next 24 to 48 hours and for any worsening symptoms to return to the ER immediately Clinical Information Provided by patient Medical Records Reviewed [facility] Meds/Rx Considered, not Ordered None Labs/Rad/Tests considered, not Ordered Describe details: Obtained Chronic Illness/Social Conditions which may negatively complicate care or outcome(s)-explain: None or not applicable EKG EKG Interpretation narrative: Reviewed by me Lab Interpretation Labs: interpreted by me Imaging Imaging interpretation: see narrative above Provider imaging interpretation(s): Ordered Radiology reports / interpretation(s): Reviewed by me Medication Administration(s) none Diagnosis Differential diagnosis: Anxiety, COVID-19, paresthesia Differential dx and/or dx ruled out: COVID-19, paresthesia Most likely dx, and/or detailed dx discussion: COVID-19, paresthesia Dispositon Disposition: Discharge Home
[2024-09-15 18:01] LABS: Path Review Blood Smear Sent to Pathologist
== END 2024-09-15 16:00 | disposition home or self-care (01) ==
PROVIDERS: Nurse Practitioner Primary Care; Emergency Provider Family Medicine
DX: U07.1 COVID-19 (principal); R20.2 Paresthesia of skin; R94.31 Abnormal electrocardiogram [ECG] [EKG]
CPT/HCPCS: 36415; 70450; 71046; 80053; 84484; 85025; 93005; 99283

== ENCOUNTER → 2024-09-15 | Outpatient (BNVA) | payer MEDICAID, SELFPAY | END | disposition home or self-care (01) | PROVIDERS: PCP Nurse Practitioner Family; Referring Provider Nurse Practitioner Family; Visit Provider Nurse Practitioner Primary Care | DX: U07.1 COVID-19 (principal) | CPT/HCPCS: 99212; 99213; Q0162 ==

== ENCOUNTER → 2024-10-07 | Outpatient (CLI) | payer MEDICAID, SELFPAY ==
--- NOTE | 2024-10-07 13:00 | XR_ITS ---
Examination: CT maxillofacial, without intravenous contrast. 2-D sagittal reconstructions. 3-D reconstructions. Date and time of exam:October 07, 2024 1401 hours INDICATIONS: Sinus pressure and pain congestion difficulty breathing to the nose 6 months CTDI: vol (mGy):7.65 DLP: (mGycm):111 Technique: Multiple axial images of maxillofacial region, 3.0 mm slice thickness. 2-D sagittal and coronal reconstructions. 3-D reconstructions. Low dose protocols were performed. One or more of the following dose reduction techniques were used; automated exposure control, adjustment of the mA and/or KV according to patient size, use of iterative reconstruction technique. Findings: Total opacification right frontal air cells Trace mucosal thickening right maxillary antrum up to 3 mm No deviation nasal septum Mild hypertrophy inferior nasal turbinates No fluid levels No retention cysts IMPRESSION: Chronic right frontal sinusitis. Minimal chronic right maxillary sinusitis
== END | disposition home or self-care (01) ==
LOC: CCTX 13:28
PROVIDERS: PCP Nurse Practitioner Family; Referring Provider Nurse Practitioner Family; Visit Provider Nurse Practitioner Family
DX: J32.0 Chronic maxillary sinusitis (principal); J32.1 Chronic frontal sinusitis
CPT/HCPCS: 70486

== ENCOUNTER → 2024-10-30 | Outpatient (BNVA) | payer MEDICAID, SELFPAY | END | disposition home or self-care (01) | PROVIDERS: PCP Nurse Practitioner Family; Referring Provider Nurse Practitioner Family; Visit Provider Nurse Practitioner Family | DX: Z71.2 Person consulting for explanation of examination or test findings (principal); J32.0 Chronic maxillary sinusitis; J32.1 Chronic frontal sinusitis; G43.909 Migraine, unspecified, not intractable, without status migrainosus | CPT/HCPCS: 99213 ==

== ENCOUNTER → 2024-12-24 | Outpatient (BNVA) | payer MEDICAID, SELFPAY | END | disposition home or self-care (01) | PROVIDERS: PCP Nurse Practitioner Family; Referring Provider Nurse Practitioner Family; Visit Provider Nurse Practitioner Family | DX: F32.1 Major depressive disorder, single episode, moderate (principal); F41.9 Anxiety disorder, unspecified; R73.03 Prediabetes; E78.5 Hyperlipidemia, unspecified; E55.9 Vitamin D deficiency, unspecified; Z28.21 Immunization not carried out because of patient refusal | CPT/HCPCS: 99213 ==

== ENCOUNTER → 2025-01-01 | Outpatient (BNVA) | payer MEDICAID, SELFPAY | END | disposition home or self-care (01) | PROVIDERS: PCP Nurse Practitioner Family; Referring Provider Nurse Practitioner Family; Visit Provider Nurse Practitioner Family | DX: Z71.2 Person consulting for explanation of examination or test findings (principal); D50.0 Iron deficiency anemia secondary to blood loss (chronic); E55.9 Vitamin D deficiency, unspecified; E78.5 Hyperlipidemia, unspecified; Z23 Encounter for immunization; R73.03 Prediabetes | CPT/HCPCS: 99213 ==

== ENCOUNTER → 2025-01-27 | Outpatient (BNVA) | payer MEDICAID, SELFPAY | END | disposition home or self-care (01) | PROVIDERS: PCP Nurse Practitioner Family; Referring Provider Nurse Practitioner Family; Visit Provider Nurse Practitioner Family | DX: Z71.2 Person consulting for explanation of examination or test findings (principal); R92.333 Mammographic heterogeneous density, bilateral breasts; D50.0 Iron deficiency anemia secondary to blood loss (chronic); Z28.21 Immunization not carried out because of patient refusal | CPT/HCPCS: 99215 ==

== ENCOUNTER 2025-02-09 14:08 | Outpatient (AMB) | payer MEDICAID, SELFPAY ==
[2025-02-09 14:50] VITALS: BP 132/84; PULSE 71; RESP 14; TEMP 36.6; O2SAT 96; BMI 37.1
--- NOTE | 2025-02-09 14:50 | GYNCLNT_ITS ---
Vital Signs 02/09/25 14:50 Height 1.61 m Height Method Stated Weight 96.332 kg Weight Measurement Method Standing Scale BMI 37.1 BP 132/84 H Blood Pressure Source Automatic Cuff Blood Pressure Location Left Upper Arm Position Sitting Respiration 14 Pulse 71 Pulse Source Monitor Temp 97.8 F Temp Source Oral Pulse Oximetry (%) 96 Oxygen Delivery Method Room Air Allergies/Home Meds Allergies & Medications Allergies No Known Allergies Allergy (Verified 02/09/25 16:05) Medication Reconciliation fremanezumab-vfrm 225 mg/1.5 mL subcutaneous auto-injector (Ajovy) 675 mg (4.5 mL) subcut QMONTH 3 months #4.5 mL 10/30/24 [Rx Confirmed 02/09/25] rimegepant 75 mg disintegrating tablet (Nurtec ODT) 75 mg PO Q OTHER DAY PRN migraine headache 90 days #60 tabs 10/30/24 [Rx Confirmed 02/09/25] fluoxetine 20 mg capsule 20 mg PO QDAY #90 caps 12/24/24 [Rx Confirmed 02/09/25] cholecalciferol (vitamin D3) 50 mcg (2,000 unit) capsule 50 mcg PO QDAY #90 caps 01/01/25 [Rx Confirmed 02/09/25] ferrous sulfate 325 mg (65 mg iron) tablet 325 mg PO BID 60 days #120 tabs 02/09/25 [Rx] Intake Visit Data Collection New Patient or Established: Established Patient (seen at [facility] within 3 years) Reason for Visit:: OVARIAN CYST FOLLOW UP Seen by Clinical Staff ONLY (RN/MA): No Bake Room Worker Required: Yes Bake Room Worker's name/title: ALINA JENKINS Do You Feel Safe at Home: Yes Authorities Contacted: N/A PCP or OBGYN visit in last 3 months: Yes Hx Now: No Are you currently on any form of Control: No Last menstrual period: 01/24/25 Pain Present Currently: No Pain Scale Used: Patton-Sanches/Numerical Pain scale:: 0 Smoking Status Smoking Status: Never smoker Immunizations Flu Vaccine in the Last 12 Months: Yes Flu Vaccine Exclusion Criteria: Already Received 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 1. Little interest or pleasure in doing things: not at all 2. Feeling down, depressed, or hopeless: not at all Total score: 0 PHQ-9 3. Trouble falling or staying asleep, or sleeping too much: Not at all 4. Feeling tired or having little energy: Not at all 5. Poor appetite or overeating: Not at all 6. Feeling bad about yourself - or that you are a failure or have let yourself or your family down: Not at all 7. Trouble concentrating on things, such as reading the newspaper or watching television: Not at all 8. Moving or speaking so slowly that other people could have noticed? - Or the opposite - being so fidgety or restless that you have been moving around a lot more than usual: not at all 9. Thoughts that you would be better off or of hurting yourself in some way: Not at all Total score: 0 Source: Developed by Drs. Sean Oswald, Lin Farrar, Bruno Bragg and colleagues, with an educational lou from [employer]. Depression screen completed yes Social History Living Situation History Lives With: Family Housing: House Tobacco History Smoking Status: Never smoker Second Hand Smoke Exposure: No Alcohol History Alcohol Intake: Current Alcohol Intake Frequency: holidays/special occasions only Substance Use History Substance Use: NONE Domestic Abuse History Do You Feel Safe at Home: Yes History of Present Illness HPI Narrative Viviana Motley presents for follow-up after 6 months, with a history of uterine leiomyomas previously treated with Lupron. She had been experiencing pelvic pain and bleeding related to her fibroids. At her last appointment, she received her second dose of Depo-Leupron along with add-back therapy. Subsequently, she was lost to follow-up and never returned for her scheduled appointments. The patient has comorbid conditions including diabetes and chronic hypertension, and is currently on nifedipine and metformin. She had received her second dose of Depo-Leupron at her last appointment along with add-back therapy. ROS: Genitourinary: Positive for pelvic pain and bleeding. Diagnostic Test Results and Labs: - Previous imaging: Fundal fibroid measuring 5.1 x 5.4 x 4.5 centimeters with multiple smaller fibroids - Carrier screening (September 23, 2018): Cystic fibrosis screening performed - AFP ordered at 14 weeks gestation (or 10 weeks - timing unclear from transcript) Exam General General Appearance: alert, in no apparent distress and healthy appearing Head Head exam: atraumatic Neck Neck exam: Present normal inspection and trachea midline Chest Chest inspection: Present normal inspection and symmetric chest wall rise External exam: Present normal external exam; Absent tenderness Neuro Neurological exam: Present oriented X3 Psych Psychiatric exam: Present normal affect and normal mood Office Procedures [facility] Clinic LOC & Office Proc's Nursing/Assessment Patient Status: Established Patient OB Clinic Nursing Assessment: Medication Reconciliation, Update PMH in EMR and Vital Signs OB Clinic Coordination of Care: Complex Care and Chronic Disease 1-5, Consent,records obtained, informed consent, Education Simp Pt/Fam, 1 Ins Authorization, Lab and Imaging orders, Results/Orders obtained and Staff clarify orders Established Patient Charge Established Patient Point Assignment: 120 Established Patient Point Charge: EP Level 4 (120-155) Assessment & Plan Diagnosis / Problem List (1) Intramural leiomyoma of uterus: Status: Acute Plan Uterine Leiomyomas: - Known uterine leiomyomas with fundal fibroid measuring 5.1 x 5.4 x 4.5 centimeters with multiple smaller fibroids. - Symptoms of pelvic pain and bleeding. - Previously received two doses of Depo-Leupron with add-back therapy but lost to follow-up. Plan: - Follow-up after 6 months since last treatment. Chronic Hypertension: - Patient has chronic hypertension. - Currently on nifedipine. Plan: - Continue current management.
== END 2025-02-09 15:13 | disposition home or self-care (01) ==
LOC: HODSOBC 14:08
PROVIDERS: PCP Nurse Practitioner Family; Referring Provider Nurse Practitioner Family; Supervising Provider Obstetrics & Gynecology; Visit Provider Obstetrics & Gynecology
DX: D25.1 Intramural leiomyoma of uterus (principal); I10 Essential (primary) hypertension; E11.9 Type 2 diabetes mellitus without complications; Z79.899 Other long term (current) drug therapy
CPT/HCPCS: 99214; G0463

== ENCOUNTER → 2025-02-09 | Outpatient (BNVA) | payer MEDICAID, SELFPAY | END | disposition home or self-care (01) | PROVIDERS: PCP Nurse Practitioner Family; Referring Provider Nurse Practitioner Family; Visit Provider Nurse Practitioner Family | DX: Z71.2 Person consulting for explanation of examination or test findings (principal); D50.0 Iron deficiency anemia secondary to blood loss (chronic); Z23 Encounter for immunization | CPT/HCPCS: 90471; 90686; G0008 ==